=== PATIENT | female | born 1995 | race Caucasian/White ===

== ENCOUNTER 2022-07-18 23:21 | Emergency (ER) | payer BC ==
[~2022-07-18] VITALS: Ht 172.7 cm; Wt 70.0 kg
[2022-07-19] MEDS ORDERED: LIDOCAINE VISCOUS 2% 15ML UD PO ONE (00:30)
[2022-07-19] MEDS ORDERED: MAALOX PLUS or MAALOX 30 ML PO ONE (00:30)
[2022-07-19] MEDS ORDERED: METOCLOPRAMIDE 10 mg/10ml ORAL soln PO ONE (00:30)
[2022-07-19 00:35] LABS: Basophils # (auto) 0.1 10 ^3/uL (0-0.2); Basophils % (auto) 0.6 % (0.0-2.0); Eosinophils % (auto) 0.8 % (0.0-7.0); Hematocrit 39.4 % (36.0-46.0); Hemoglobin 13.3 g/dL (12.2-16.2); Lymphocytes # (auto) 2.4 10 ^3/uL (0.4-5.4); Lymphocytes % (auto) 24.2 % (10.0-50.0); Mean Corpuscular Hemoglobin 28.7 pg (28.0-32.0); Mean Corpuscular Hgb Conc. 33.8 g/dL (32.0-36.0); Mean Corpuscular Volume 84.8 fL (80.0-100.0); Monocytes # (auto) 0.4 10 ^3/uL (0-1.3); Monocytes % (auto) 4.4 % (0.0-12.0); Neutrophils # (auto) 6.9 10 ^3/uL (1.6-8.6); Red Blood Cells 4.65 10^6/uL (4.0-5.20); Red Cell Distribution Width 13.8 % (11.8-14.3); White Blood Cell 9.9 10^3/uL (4.4-10.8)
[2022-07-19 00:36] LABS: Eosinophils # (auto) 0 10 ^3/uL (0-0.8)
[2022-07-19 00:53] LABS: BUN/Creatinine Ratio 8.9; Calcium 9.2 mg/dL (8.5-10.1); Potassium 3.7 mmol/L (3.5-5.1)
[2022-07-19 00:56] LABS: Bilirubin, Total 0.6 mg/dL (0.2-1.0); Total Protein 7.9 g/dL (6.4-8.2)
[2022-07-19] MEDS ORDERED: FAMO-161 PO (05:15)
[2022-07-19] MEDS ORDERED: MET10LQ PO (05:15)
[2022-07-19 05:58] VITALS: BP 115/82
== END 2022-07-19 06:07 | disposition home or self-care (01) ==
LOC: ER 23:21 → EDBD 23:21 → ER 07-19 06:07
DX: K29.70 Gastritis, unspecified, without bleeding (principal); F32.9 Major depressive disorder, single episode, unspecified; R10.2 Pelvic and perineal pain
CPT/HCPCS: 36415; 74176; 80053; 83690; 84702; 85025; 99284; J8597

== ENCOUNTER → 2022-07-19 | Emergency (ER) | payer BC ==
[~2022-07-19] MED LIST: FAMO-161 PO; MET10LQ PO
== END | disposition left against medical advice (07) ==
LOC: ER 07:03
DX: R10.9 Unspecified abdominal pain (principal); Z53.21 Procedure and treatment not carried out due to patient leaving prior to being seen by health care provider

== ENCOUNTER 2023-05-10 20:35 | Emergency (ER) | payer BC ==
[~2023-05-10] VITALS: Ht 172.7 cm; Wt 68.2 kg
[2023-05-10] MEDS ORDERED: KETOROLAC TROMETH 60MG/2ML VIAL IM ONE (21:45)
[2023-05-10] MEDS ORDERED: diphenhdrAMINE HCL 50 MG/1 ML VL IM ONE (21:45)
[2023-05-10] MEDS ORDERED: ONDANSETRON HCL 4 MG/2 ML VIAL IM ONE (21:45)
[2023-05-10 22:23] VITALS: BP 112/75; PULSE 95; RESP 16; TEMP 99.7; O2SAT 97
== END 2023-05-10 22:31 | disposition left against medical advice (07) ==
LOC: ER 20:35
DX: R51.9 Headache, unspecified (principal); F32.9 Major depressive disorder, single episode, unspecified
CPT/HCPCS: 96372; 99284; J1200; J1885; J2405

== ENCOUNTER 2023-07-26 14:42 | Emergency (ER) | payer BC, MEDICAID ==
[~2023-07-26] VITALS: Ht 172.7 cm; Wt 69.4 kg
[2023-07-26] MEDS: HYDROcodone-ACET 10/325MG TAB PO ONE (15:24)
[2023-07-26 15:26] VITALS: BP 122/86; PULSE 85; RESP 18; O2SAT 96
[2023-07-26] MEDS ORDERED: IBU600T PO (16:17)
== END 2023-07-26 16:33 | disposition home or self-care (01) ==
LOC: ER 14:42
DX: S46.812A Strain of other muscles, fascia and tendons at shoulder and upper arm level, left arm, initial encounter (principal); F32.9 Major depressive disorder, single episode, unspecified; Z79.899 Other long term (current) drug therapy; W18.39XA Other fall on same level, initial encounter; Y93.23 Activity, snow (alpine) (downhill) skiing, snowboarding, sledding, tobogganing and snow tubing; Y92.89 Other specified places as the place of occurrence of the external cause; Y99.8 Other external cause status
CPT/HCPCS: 73030

== ENCOUNTER 2024-07-15 04:46 | Emergency (ER) | payer BC, MEDICAID ==
[~2024-07-15] VITALS: Ht 172.7 cm; Wt 59.0 kg
[~2024-07-15 04:46] MED LIST changes: +IBU600T PO
[2024-07-15] MEDS: ONDANSETRON HCL 4 MG/2 ML VIAL IV ONE ×2 (05:12→09:02)
[2024-07-15] MEDS: LORazepam 2MG/ML-1ML VIAL IV ONE (05:12)
[2024-07-15] MEDS: KETOROLAC TROMETH 30 MG/ML 1ML VIAL IV ONE (05:12)
[2024-07-15] MEDS: PANTOPRAZOLE 40 MG/10 ML VIAL INJ IV ONE ×2 (05:12→09:03)
[2024-07-15 05:48] LABS: Basophils # (auto) 0 10 ^3/uL (0-0.2); Basophils % (auto) 0.3 % (0.0-2.0); Eosinophils # (auto) 0 10 ^3/uL (0-0.8); Eosinophils % (auto) 0.1 % (0.0-7.0); Hematocrit 37.5 % (36.0-46.0); Lymphocytes # (auto) 1.3 10 ^3/uL (0.4-5.4); Lymphocytes % (auto) 16.5 % (10.0-50.0); Mean Corpuscular Hemoglobin 29.2 pg (28.0-32.0); Mean Corpuscular Hgb Conc. 34.6 g/dL (32.0-36.0); Mean Corpuscular Volume 84.2 fL (80.0-100.0); Monocytes # (auto) 0.2 10 ^3/uL (0-1.3); Monocytes % (auto) 3.1 % (0.0-12.0); Neutrophils # (auto) 6.4 10 ^3/uL (1.6-8.6); Platelet Count (auto) 259 10^3/uL (140-450); Red Blood Cells 4.45 10^6/uL (4.0-5.20)
[2024-07-15 06:17] LABS: Albumin 4.7 g/dL (3.2-4.8); Alkaline Phosphatase 51 U/L (46-116); Anion Gap 12 (5-15); BUN/Creatinine Ratio 20.6 (10.0-20.0); Blood Urea Nitrogen 14 mg/dL (9-23); Calcium 9.7 mg/dL (8.7-10.4); Carbon Dioxide 22 mmol/L (20-31); Chloride 105 mmol/L (98-107); Lipase 43 U/L (12-53); Sodium 139 mmol/L (136-145)
[2024-07-15 06:18] LABS: Bilirubin, Total 0.9 mg/dL (0.2-1.0); Total Protein 6.9 g/dL (5.7-8.2)
[2024-07-15 06:26] LABS: Alanine Aminotransferase < 9 U/L (7-40); Aspartate Aminotransferase 9 U/L (13-40); Glucose 111 mg/dL (74-106)
[2024-07-15 07:30] VITALS: PULSE 62; RESP 18; TEMP 98.4; O2SAT 98
--- NOTE | 2024-07-15 08:01 | ED.PDOC ---
GI ASSESSMENT HPI Comments 28 y/o F, DELMAR presents to the ED for CC of abdominal pain. Patient states, she has been experiencing epigastric RLQ abdominal pain x2day. Patient endorses on, currently withdrawing from ETOH and believes symptoms are related but is unsure. Patient comments, 03/18 pain with associated symptoms of nausea and vomiting. Patient denies fever, chills, sweats, auditory hallucinations or visual hallucinations. No other symptoms or modifying factors at this time. Chief Complaint: Abdominal Pain Time Seen by MD: 08:10 Primary Care Provider: ANGELIES Reviewed Notes: Nurses Notes, Yard Coupler Notes, Medications, Allergies Allergies: Coded Allergies: NO KNOWN ALLERGIES (Unverified , 07/18/22) Home Meds Active Scripts Ibuprofen Micronized (MOTRIN TABLET) 600 Mg Tb, 600 MG PO TID PRN for 5 Days, #15 TAB *Black box warning-NSAIDS can increase risk of [place] & hypertension, GI irritation, ulceration, bleed, perferation. Do not use post cardiac surgery. Use short duration/lowest effective dose. Prov:CITLALY CHAIREZ MD 07/26/23 Famotidine (Pepcid AC) 20 Mg Tab, 40 MG PO BID for 20 Days, #80 TAB Prov:FRANTZ KOCH DO 07/19/22 Metoclopramide Hcl (Reglan) 10 Mg/10 Ml So, 10 MG PO TIDPRN PRN for 10 Days, #120 ML Prov:FRANTZ KOCH DO 07/19/22 Information Source: Patient, Emergency Med Personnel Mode of Arrival: EMS Timing: Days Duration: Since onset Prehospital treatment: None Quality: None Vomitus: Watery Stool: Normal Severity: Mild Recent: None Recent Hx of: None Pain Location: RLQ Modifying Factors: Nothing Associated sign and symptoms: Nausea, Vomiting, Abdominal Pain Past Medical History PAST MEDICAL HISTORY: Depression, Seizures Surgical History: Denies all surgeries MAIL CLERK BILLS History: No Pertinent MAIL CLERK BILLS History Family History Family History: Unknown Social History Smoker: Non-Smoker Alcohol: Denies ETOH Use Drugs: Denies Drug Use Lives In: Home Constitutional: denies: chills, diaphoresis, fatigue, fever, malaise, sweats, weakness, others EENTM: denies: blurred vision, double vision, ear bleeding, ear discharge, ear drainage, ear pain, ear ringing, eye pain, eye redness, hearing loss, mouth pain, mouth swelling, nasal discharge, nose bleeding, nose congestion, nose pain, photophobia, tearing, throat pain, throat swelling, voice changes, others Respiratory: denies: cough, hemoptysis, orthopnea, SOB at rest, shortness of breath, SOB with excertion, stridor, wheezing, others Cardiovascular: denies: chest pain, dizzy spells, diaphoresis, Dyspnea on exertion, edema, irregular heart beat, left arm pain, lightheadedness, palpitations, PND, syncope, others Gastrointestinal: reports: abdominal pain, nausea, vomiting; denies: abdomen distended, blood streaked bowels, constipated, diarrhea, dysphagia, difficulty swallowing, hematemesis, melena, poor appetite, poor fluid intake, rectal bleeding, rectal pain, others Genitourinary: denies: abnormal vagina bleeding, burning, dyspareunia, dysuria, flank pain, frequency, hematuria, incontinence, pain, , vagina discharge, urgency, others Neurological: denies: dizziness, fainting, headache, left sided numbness, left sided weakness, numbness, paresthesia, pre-existing deficit, right sided numbness, right sided weakness, seizure, speech problems, tingling, tremors, weakness, others Musculoskeletal: denies: back pain, gout, joint pain, joint swelling, muscle pain, muscle stiffness, neck pain, others Integumetry: denies: bruises, change in color, change in hair/nails, dryness, laceration, lesions, lumps, rash, wounds, others Allergic/Immunocompromised: denies: Difficulty Healing, Frequent Infections, Hives, Itching, others Hematologic/Lymphatic: denies: anemia, blood clots, easy bleeding, easy bruising, swollen glands, others Endocrine: denies: excessive hunger, excessive sweating, excessive thirst, excessive urination, flushing, intolerance to cold, intolerance to heat, unexplained weight gain, unexplained weight loss, others Psychiatric: denies: anxiety, bipolar disorder, depression, hopeless, panic disorder, schizophrenia, sleepless, suicidal, others All Other Systems: Reviewed and Negative Physical Exam General Appearance: Moderate Distress HEENT: Normal ENT Inspection, Pharynx Normal, TMs Normal Neck: Full Range of Motion, Non-Tender, Normal, Normal Inspection Respiratory: Chest Non-Tender, Lungs Clear, No Accessory Muscle Use, No Respiratory Distress, Normal Breath Sounds Cardiovascular: No Edema, No JVD, No Murmur, No Gallop, Normal Peripheral Pulses, Regular Rate/Rhythm Breast Exam: Deferred Gastrointestinal: No Organomegaly, Non Tender, No Pulsatile Mass, Normal Bowel Sounds, Soft Genitalia: Deferred Pelvic: Deferred Rectal: Deferred Extremities: No calf tenderness, Normal capillary refill, Normal inspection, Normal range of motion, Non-tender, No pedal edema Musculoskeletal : Apperance: Normal Neurologic: Alert, amusement park entertainer II-XII nml as Tested, No Motor Deficits, Normal Affect, Normal Mood, No Sensory Deficits Cerebellar Function: NOT DONE Reflexes: NOT DONE Skin: Dry, Normal Color, Warm Peripheral Pulses: 3+ Radial (R), 3+ Radial (L) Lymphatic: No Adenopathy Was a procedure done? Was a procedure done?: No GI differential Dx Differential Diagnosis: Constipation, Diverticular disease, Esophagitis, Gastritis/PUD, Gastroenteritis, Drug toxicity, Electrolyte Imbalance, Food Poisoning, Bacterial, Viral X-Ray, Labs, Meds, VS Vital Signs Date Time Temp Pulse Resp B/P (MAP) Pulse Ox O2 Delivery O2 Flow Rate FiO2 07/15/24 09:03 68 16 143/99 07/15/24 07:30 98.4 62 18 143/99 (114) 99 98.4 07/15/24 07:30 62 18 98 Room Air* 0 21 07/15/24 05:12 98.0 97 20 145/83 (103) 99 Lab Test 07/15/24 08:15 07/15/24 05:28 Range/Units Urine Color Yellow Yellow Urine Clarity Cloudy H Clear Urine pH 6.0 5.0-9.0 Urine Specific [place] 1.039 H 1.001-1.035 Urine Protein 1+ H Negative Urine Ketones 2+ H Negative Urine Blood 1+ H Negative /uL Urine Nitrite Negative Negative Urine Bilirubin Negative Negative Urine Urobilinogen Normal Negative mg/dL Urine Leukocyte Esterase 2+ Negative /uL Urine RBC 5 0 - 4 /hpf Urine Microscopic WBC 5 0-5 /HPF Urine Squamous Epithelial Cells Mod <5 /hpf Urine Amorphous Crystals Few None Seen /hpf Urine Bacteria Few H None Seen /hpf Urine Mucus Few None Seen Urine Glucose Normal Normal mg/dL Urine Test Negative Negative White Blood Count 8.0 4.4-10.8 10^3/uL Red Blood Count 4.45 4.0-5.20 10^6/uL Hemoglobin 13.0 12.2-16.2 g/dL Hematocrit 37.5 36.0-46.0 % Mean Corpuscular Volume 84.2 80.0-100.0 fL Mean Corpuscular Hemoglobin 29.2 28.0-32.0 pg Mean Corpuscular Hemoglobin Concent 34.6 32.0-36.0 g/dL Red Cell Distribution Width 13.0 11.8-14.3 % Platelet Count 259 140-450 10^3/uL Mean Platelet Volume 8.3 6.9-10.8 fL Neutrophils (%) (Auto) 80.0 37.0-80.0 % Lymphocytes (%) (Auto) 16.5 10.0-50.0 % Monocytes (%) (Auto) 3.1 0.0-12.0 % Eosinophils (%) (Auto) 0.1 0.0-7.0 % Basophils (%) (Auto) 0.3 0.0-2.0 % Neutrophils # (Auto) 6.4 1.6-8.6 10 ^3/uL Lymphocytes # (Auto) 1.3 0.4-5.4 10 ^3/uL Monocytes # (Auto) 0.2 0-1.3 10 ^3/uL Eosinophils # (Auto) 0 0-0.8 10 ^3/uL Basophils # (Auto) 0 0-0.2 10 ^3/uL Nucleated Red Blood Cells 0.0 % Sodium Level 139 136-145 mmol/L Potassium Level 3.0 L 3.5-5.1 mmol/L Chloride Level 105 98-107 mmol/L Carbon Dioxide Level 22 20-31 mmol/L Anion Gap 12 5-15 Blood Urea Nitrogen 14 9-23 mg/dL Creatinine 0.68 0.550-1.02 mg/dL Glomerular Filtration Rate Calc 122 >90 mL/min BUN/Creatinine Ratio 20.6 H 10.0-20.0 Serum Glucose 111 H 74-106 mg/dL Lactic Acid Level 1.7 0.4-2.0 mmol/L Calcium Level 9.7 8.7-10.4 mg/dL Total Bilirubin 0.9 0.2-1.0 mg/dL Aspartate Amino Transferase (AST) 9 L 13-40 U/L Alanine Aminotransferase (ALT) < 9 7-40 U/L Alkaline Phosphatase 51 46-116 U/L Total Protein 6.9 5.7-8.2 g/dL Albumin 4.7 3.2-4.8 g/dL Lipase 43 12-53 U/L Plasma/Serum Blood Alcohol Pending Current Medications Medications (Trade) Dose Ordered Sig/Guevara Route Start Time Stop Time Status Last Admin Ketorolac Tromethamine (Toradol Injection) 15 mg ONCE ONCE IV 07/15/24 05:00 07/15/24 05:01 DC 07/15/24 05:12 Ondansetron HCl (Zofran) 4 mg ONCE ONCE IV 07/15/24 05:00 07/15/24 05:01 DC 07/15/24 05:12 Pantoprazole Sodium (Protonix) 40 mg ONCE ONCE IV 07/15/24 05:00 07/15/24 05:01 DC 07/15/24 05:12 Lorazepam (Ativan Inj) 1 mg ONCE ONCE IV 07/15/24 05:15 07/15/24 05:16 DC 07/15/24 05:12 Ondansetron HCl (Zofran) 4 mg ONCE ONCE IV 07/15/24 09:00 07/15/24 09:01 DC 07/15/24 09:02 Morphine Sulfate 4 mg ONCE ONCE IV 07/15/24 09:00 07/15/24 09:01 DC 07/15/24 09:03 Pantoprazole Sodium (Protonix) 40 mg ONCE ONCE IV 07/15/24 09:00 07/15/24 09:01 DC 07/15/24 09:03 Sodium Chloride 1,000 ml @ 1,000 mls/hr Q1H ONCE IV 07/15/24 09:00 07/15/24 09:59 07/15/24 09:03 Thiamine HCl 100 mg ONCE ONCE IV 07/15/24 09:00 07/15/24 09:01 DC 07/15/24 09:03 Potassium Bicarbonate (Klor-Con/Ef) 25 meq ONCE ONCE PO 07/15/24 09:00 07/15/24 09:01 DC 07/15/24 09:04 Ceftriaxone Sodium 50 ml @ 100 mls/hr ONCE ONCE IV 07/15/24 09:00 07/15/24 09:29 07/15/24 09:13 Patient alert. Complaining of abdominal pain. History of alcohol use. Vitals stable. Answering questions. Establish intravenous access. Was given fluids. Was given thiamine. Was given morphine. Was given Zofran. Urinalysis shows UTI. Was given Rocephin. Sepsis due to urine. Potassium is low. Was given potassium. She continues to have abdominal pain. Counseled patient on effects of drinking for 15 minutes. Explained to the patient. Continue cardiac monitoring. Time of 1ST Reevaluation: 08:40 Reevaluation 1ST: Unchanged Patient Education/Counseling: Diagnosis, Treatment Family Education/Counseling: No Family Present Departure 1 Departure Time of Disposition: 09:16 Impression: Primary Impression: Sepsis, unspecified organism Qualified Codes: A41.9 - Sepsis, unspecified organism Additional Impressions: Urinary tract infection Qualified Codes: N30.00 - Acute cystitis without hematuria Hypokalemia Non-specific colitis Dehydration Disposition: ADMITTED INPATIENT Admit to: Med Surg Condition: Guarded Critical Care Note Critical Care Time?: No Stability Stability form required: No Heart Score Heart Score: Heart Score Response (Comments) Value History N/A 0 EKG N/A 0 Age N/A 0 Risk Factors N/A 0 Troponin N/A 0 Total 0 I personally scribed for CITLALY CHAIREZ MD ([email or web address]) on 07/15/24 at 08:01. Electronically submitted by Mary Antonio ([email or web address]). I personally scribed for CITLALY CHAIREZ MD ([email or web address]) on 07/15/24 at 08:51. Electronically submitted by Mary Antonio [email or web address]). CITLALY CHAIREZ MD Jul 15, 2024 08:01
[2024-07-15 08:35] LABS: Urine Amorphous Crystal FEW /hpf (None Seen); Urine Bacteria FEW /hpf (None Seen); Urine Blood 1+ /uL (Negative); Urine Color Yellow (Yellow); Urine Mucus FEW (None Seen); Urine Protein, UAD 1+ (Negative); Urine Specific Gravity 1.039 (1.001-1.035); Urine Squamous Epithelial Cell MOD /hpf (<5); Urine Urobilinogen Normal (Negative); Urine WBC 5 /HPF (0-5)
[2024-07-15 08:50] LABS: Urine Clarity Cloudy (Clear)
[2024-07-15] MEDS: SODIUM CHLORIDE 0.9% 1,000 ML IV ONE (09:03)
[2024-07-15] MEDS: MORPHINE SULFATE 4 MG/ML SYR/VIAL IV ONE (09:03)
[2024-07-15] MEDS: THIAMINE 100mg/ml INJ (200mg/2ml VIAL) IV ONE (09:03)
[2024-07-15] MEDS: POTASSIUM EFFERVESENT TAB 25 MEQ PO ONE (09:04)
[2024-07-15] MEDS: cefTRIAXone 1GM/50ML D5W 50 ML IV ONE (09:13)
[2024-07-15 12:01] VITALS: BP 110/53; PULSE 64; RESP 16; O2SAT 98
== END 2024-07-15 13:16 | disposition left against medical advice (07) ==
LOC: EDUNIT# 04:46 → EDBD 04:46 → ER 04:46
DX: A41.9 Sepsis, unspecified organism (principal); N39.0 Urinary tract infection, site not specified; E87.6 Hypokalemia; K52.9 Noninfective gastroenteritis and colitis, unspecified; E86.0 Dehydration; F32.9 Major depressive disorder, single episode, unspecified; R11.2 Nausea with vomiting, unspecified
CPT/HCPCS: 36415; 80053; 80320; 81001; 81025; 83605; 83690; 85025; 96365; 96375; 96376; 99285; J0696; J1885; J2060; J2270; J2405; J2470; J3411; 96374

== ENCOUNTER 2024-07-29 08:01 | Inpatient (IN) | payer MEDICAID ==
[~2024-07-29] VITALS: Ht 172.7 cm; Wt 70.0 kg
[2024-07-29] MEDS: SODIUM CHLORIDE 0.9% 1,000 ML IVB ONE (08:17)
--- NOTE | 2024-07-29 08:23 | ED.PDOC ---
GI ASSESSMENT HPI Comments 28 y/o FDELMAR presents to the ED for CC of abdominal pain. Per EMS, patient has been experiencing diffuse abdominal pain with associated symptoms of nausea and vomiting since last night (07/28/24). Patient states, that she believes abdominal pain and nausea to be caused by something she ate last night (). Patient was given 4mg of Zofran in route to ED with no affect. Patient denies fever, chills, body-aches, diarrhea, or headache. No other associated symptom's, modifiers, recent injuries or sick contact at this time. Chief Complaint: Abdominal Pain Time Seen by MD: 08:10 Primary Care Provider: ISAURA Reviewed Notes: Nurses Notes, Medications, Allergies Allergies: Coded Allergies: NO KNOWN ALLERGIES (Unverified , 07/18/22) Home Meds Active Scripts Ibuprofen Micronized (MOTRIN TABLET) 600 Mg Tb, 600 MG PO TID PRN for 5 Days, #15 TAB *Black box warning-NSAIDS can increase risk of [place] & hypertension, GI irritation, ulceration, bleed, perferation. Do not use post cardiac surgery. Use short duration/lowest effective dose. Prov:CITLALY CHAIREZ MD 07/26/23 Famotidine (Pepcid AC) 20 Mg Tab, 40 MG PO BID for 20 Days, #80 TAB Prov:FRANTZ KOCH DO 07/19/22 Metoclopramide Hcl (Reglan) 10 Mg/10 Ml So, 10 MG PO TIDPRN PRN for 10 Days, #120 ML Prov:FRANTZ KOCH DO 07/19/22 Information Source: Patient, Emergency Med Personnel Mode of Arrival: EMS Timing: Hours Duration: Since onset Prehospital treatment: None Quality: None Vomitus: Watery Stool: Normal Severity: Moderate Recent: None Recent Hx of: None Pain Location: Diffuse Modifying Factors: Nothing Associated sign and symptoms: Nausea, Vomiting Past Medical History PAST MEDICAL HISTORY: Depression, Seizures Surgical History: Denies all surgeries CIA AGENT History: No Pertinent CIA AGENT History Family History Family History: Unknown Social History Smoker: Non-Smoker Alcohol: Denies ETOH Use Drugs: Denies Drug Use Lives In: Home Constitutional: denies: chills, diaphoresis, fatigue, fever, malaise, sweats, weakness, others EENTM: denies: blurred vision, double vision, ear bleeding, ear discharge, ear drainage, ear pain, ear ringing, eye pain, eye redness, hearing loss, mouth pain, mouth swelling, nasal discharge, nose bleeding, nose congestion, nose pain, photophobia, tearing, throat pain, throat swelling, voice changes, others Respiratory: denies: cough, hemoptysis, orthopnea, SOB at rest, shortness of breath, SOB with excertion, stridor, wheezing, others Cardiovascular: denies: chest pain, dizzy spells, diaphoresis, Dyspnea on exertion, edema, irregular heart beat, left arm pain, lightheadedness, palpitations, PND, syncope, others Gastrointestinal: reports: abdominal pain, nausea, vomiting; denies: abdomen distended, blood streaked bowels, constipated, diarrhea, dysphagia, difficulty swallowing, hematemesis, melena, poor appetite, poor fluid intake, rectal bleeding, rectal pain, others Genitourinary: denies: abnormal vagina bleeding, burning, dyspareunia, dysuria, flank pain, frequency, hematuria, incontinence, pain, , vagina discharge, urgency, others Neurological: denies: dizziness, fainting, headache, left sided numbness, left sided weakness, numbness, paresthesia, pre-existing deficit, right sided numbness, right sided weakness, seizure, speech problems, tingling, tremors, weakness, others Musculoskeletal: denies: back pain, gout, joint pain, joint swelling, muscle pain, muscle stiffness, neck pain, others Integumetry: denies: bruises, change in color, change in hair/nails, dryness, laceration, lesions, lumps, rash, wounds, others Allergic/Immunocompromised: denies: Difficulty Healing, Frequent Infections, Hives, Itching, others Hematologic/Lymphatic: denies: anemia, blood clots, easy bleeding, easy bruising, swollen glands, others Endocrine: denies: excessive hunger, excessive sweating, excessive thirst, excessive urination, flushing, intolerance to cold, intolerance to heat, unexp lained weight gain, unexplained weight loss, others Psychiatric: denies: anxiety, bipolar disorder, depression, hopeless, panic disorder, schizophrenia, sleepless, suicidal, others All Other Systems: Reviewed and Negative Physical Exam General Appearance: Moderate Distress HEENT: Normal ENT Inspection, Pharynx Normal, TMs Normal Neck: Full Range of Motion, Non-Tender, Normal, Normal Inspection Respiratory: Chest Non-Tender, Lungs Clear, No Accessory Muscle Use, No Respiratory Distress, Normal Breath Sounds Cardiovascular: No Edema, No JVD, No Murmur, No Gallop, Normal Peripheral Pulses, Regular Rate/Rhythm Breast Exam: Deferred Gastrointestinal: No Organomegaly, Non Tender, No Pulsatile Mass, Normal Bowel Sounds, Soft Genitalia: Deferred Pelvic: Deferred Rectal: Deferred Extremities: No calf tenderness, Normal capillary refill, Normal inspection, Normal range of motion, Non-tender, No pedal edema Musculoskeletal : Apperance: Normal Neurologic: Alert, lorry weigher II-XII nml as Tested, No Motor Deficits, Normal Affect, Normal Mood, No Sensory Deficits Cerebellar Function: Normal Reflexes: Normal Skin: Dry, Normal Color, Warm Peripheral Pulses: 3+ Radial (R), 3+ Radial (L) Lymphatic: No Adenopathy Was a procedure done? Was a procedure done?: No GI differential Dx Differential Diagnosis: Constipation, Diverticular disease, Esophagitis, Gastritis/PUD, Gastroenteritis, Electrolyte Imbalance, Food Poisoning, Bacterial, Viral X-Ray, Labs, Meds, VS Vital Signs Date Time Temp Pulse Resp B/P (MAP) Pulse Ox O2 Delivery O2 Flow Rate FiO2 07/29/24 08:32 88 17 123/91 07/29/24 08:21 88 17 100 Room Air 07/29/24 08:21 88 17 123/91 (102) 100 07/29/24 08:18 98.2 69 18 145/98 (114) 96 Lab Test 07/29/24 08:14 Range/Units Urine Color Pending Urine Clarity Pending Urine pH Pending Urine Specific [place] Pending Urine Protein Pending Urine Ketones Pending Urine Blood Pending Urine Nitrite Pending Urine Bilirubin Pending Urine Urobilinogen Pending Urine Leukocyte Esterase Pending Urine RBC Pending Urine Microscopic WBC Pending Urine Squamous Epithelial Cells Pending Urine Bacteria Pending Urine Glucose Pending Urine Opiates Screen Pending Urine Fentanyl Screen Pending Urine Barbiturates Screen Pending Urine Phencyclidine Screen Pending Urine Amphetamines Screen Pending Urine Benzodiazepines Screen Pending Urine Cocaine Screen Pending Urine Cannabinoids Screen Pending Current Medications Medications (Trade) Dose Ordered Sig/Guevara Route Start Time Stop Time Status Last Admin Ondansetron HCl (Zofran) 4 mg ONCE ONCE IV 07/29/24 08:15 07/29/24 08:16 DC 07/29/24 08:31 Sodium Chloride 1,000 ml @ 1,000 mls/hr Q1H ONCE IVB 07/29/24 08:15 07/29/24 09:14 07/29/24 08:17 Morphine Sulfate 4 mg ONCE ONCE IV 07/29/24 08:15 07/29/24 08:16 DC 07/29/24 08:32 Patient alert. Complaining of abdominal pain. History of alcohol abuse. Vitals stable. She is in rehab. Denies use of alcohol. Establish intravenous access Was given fluids. Was given morphine. Was given Zofran. Reviewed her previous visit. Explained to the patient. Continue cardiac monitoring. Time of 1ST Reevaluation: 08:40 Reevaluation 1ST: Unchanged Patient Education/Counseling: Diagnosis, Treatment Family Education/Counseling: No Family Present Additional Information I reviewed the following notes from patient's past medical history: 07/15/24 DX: ABDOMINAL PAIN The following tests were ordered, and results were reviewed by me: CBC, UA, BMP, DRUG PANEL Additional Information was gathered from interviewing the following independent historians: EMS I discussed treatment and results with medical personnel and: PATIENT Departure 1 Departure Time of Disposition: 08:25 Impression: Primary Impression: Acute abdominal pain Disposition: ADMITTED INPATIENT Admit to: Med Surg Condition: Guarded Critical Care Note Critical Care Time?: No Stability Stability form required: No Heart Score Heart Score: Heart Score Response (Comments) Value History N/A 0 EKG N/A 0 Age N/A 0 Risk Factors N/A 0 Troponin N/A 0 Total 0 I personally scribed for CITLALY CHAIREZ MD ([email or web address]) on 07/29/24 at 08:23. Electronically submitted by Mary Antonio ([email or web address]). I personally scribed for CITLALY CHAIREZ MD ([email or web address]) on 07/29/24 at 08:36. Electronically submitted by Mary Antonio ([email or web address]). I personally scribed for CITLALY CHAIREZ MD ([email or web address]) on 07/29/24 at 08:38. Electronically submitted by Mary Antonio ([email or web address]). CITLALY CHAIREZ MD Jul 29, 2024 08:23
[2024-07-29 08:30] VITALS: PULSE 65; RESP 16; O2SAT 98
[2024-07-29] MEDS: ONDANSETRON HCL 4 MG/2 ML VIAL IV ONE (08:31)
[2024-07-29] MEDS: MORPHINE SULFATE 4 MG/ML SYR/VIAL IV ONE (08:32)
[2024-07-29 08:50] LABS: Urine Bacteria FEW /hpf (None Seen); Urine Blood Negative /uL (Negative); Urine Clarity Clear (Clear); Urine Color Yellow (Yellow); Urine Mucus FEW (None Seen); Urine Protein, UAD 1+ (Negative); Urine Specific Gravity 1.034 (1.001-1.035); Urine Squamous Epithelial Cell FEW /hpf (<5); Urine Urobilinogen Normal (Negative); Urine WBC 3 /HPF (0-5)
[2024-07-29 08:58] LABS: Barbiturate Scree,Urine Pos (NEGATIVE); Cannabinoid Screen, Urine Pos (NEGATIVE)
[2024-07-29 08:59] LABS: Amphetamine Screen, Urine Neg (NEGATIVE); Benzodiazephine Screen, Urine Neg (NEGATIVE); Cocaine Screen, Urine Neg (NEGATIVE); Opiate Scree,Urine Neg (NEGATIVE); Phencyclidine Screen, Urine Neg (NEGATIVE)
[2024-07-29 10:20] LABS: Basophils # (auto) 0 10 ^3/uL (0-0.2); Basophils % (auto) 0.2 % (0.0-2.0); Eosinophils # (auto) 0 10 ^3/uL (0-0.8); Hematocrit 38.7 % (36.0-46.0); Hemoglobin 13.1 g/dL (12.2-16.2); Lymphocytes # (auto) 0.9 10 ^3/uL (0.4-5.4); Lymphocytes % (auto) 7.4 % (10.0-50.0); Mean Corpuscular Hemoglobin 29.1 pg (28.0-32.0); Mean Corpuscular Hgb Conc. 33.9 g/dL (32.0-36.0); Mean Corpuscular Volume 85.8 fL (80.0-100.0); Monocytes # (auto) 0.3 10 ^3/uL (0-1.3); Monocytes % (auto) 2.6 % (0.0-12.0); Neutrophils # (auto) 11.4 10 ^3/uL (1.6-8.6); Neutrophils % (auto) 89.8 % (37.0-80.0); Platelet Count (auto) 327 10^3/uL (140-450); Red Blood Cells 4.51 10^6/uL (4.0-5.20); Red Cell Distribution Width 13.6 % (11.8-14.3); White Blood Cell 12.7 10^3/uL (4.4-10.8)
[2024-07-29 10:25] LABS: Potassium 3.8 mmol/L (3.5-5.1); Sodium 142 mmol/L (136-145)
[2024-07-29 10:26] LABS: Anion Gap 10 (5-15); Carbon Dioxide 25 mmol/L (20-31)
[2024-07-29 10:31] LABS: BUN/Creatinine Ratio 14.9 (10.0-20.0); Blood Urea Nitrogen 11 mg/dL (9-23)
[2024-07-29 10:37] LABS: Chloride 107 mmol/L (98-107); Glucose 133 mg/dL (74-106)
[2024-07-29] MEDS ORDERED: PIPERACILLIN-TAZOB 3.375GM 100 ML IV SCH (14:00)
[2024-07-29] MEDS ORDERED: ACETAMINOPHEN 325 MG TAB PO PRN (14:00)
[2024-07-29] MEDS ORDERED: VANCOMYCIN PER PHARMACY 0 MG IV SCH (14:00)
[2024-07-29] MEDS ORDERED: ONDANSETRON HCL 4 MG/2 ML VIAL IV PRN (14:00)
[2024-07-29] MEDS ORDERED: LEVE100020 (14:07)
[2024-07-29] MEDS ORDERED: ACAM1TAB (14:07)
[2024-07-29] MEDS ORDERED: PREG100C66 (14:07)
--- NOTE | 2024-07-29 14:22 | DVHHP2 ---
History of Present Illness Reason for Visit: Abdominal pain History of Present Illness Astrid Cobian is a 28-year-old female with past medical history of depression, seizure, and anxiety who presents to the ED for abdominal pain, nausea, and vomiting x1 day. Patient states that she has been vomiting food contents and bile. Patient reports her pain 7/10 intermittent and aching points to her right upper flank. Patient denies any chest pain, recent trauma or recent injury, shortness of breath, fever, chills, wheezing, diarrhea, lightheadedness, and dizziness. Patient also denies that she had any recent ingestion of spoiled food. She states that hot showers makes the pain better and sitting makes it worse. Patient states that she vapes, drinks occasionally, and uses marijuana. Patient also reports that she currently stays at a detox center and she is from [place]. HIGH PRESSURE FIRER: Seizure Psych: Anxiety, Depression Family History: Hypertension, Other (Mom with hypertension and heart disease) Smoke: <1 pack per day (Vape) ALCOHOL: occassional Drugs: Marijuana, Other (Barbiturates) Lives: Other Domestic Violence: Neg Review of Systems Constitutional: No: Fever, Chills, Sweats, Weakness, Malaise, Other Eyes: No: Pain, Vision change, Conjunctivae inflammation, Eyelid inflammation, Other, Redness ENT: No: Ear pain, Ear discharge, Nose pain, Nose discharge, Nose congestion, Mouth pain, Mouth swelling, Throat pain, Throat swelling, Other Respiratory: No: Cough, Dry, Shortness of breath, SOB with excertion, Wheezing, Hemoptysis, Pleuritic Pain, Sputum, Wheezing, Other Cardiovascular: No: Chest Pain, Palpitations, Orthopnea, Paroxysmal Noc. Dyspnea, Edema, Lt Headedness, Other Gastrointestinal: Nausea, Vomiting, Abdominal Pain; No: Diarrhea, Constipation, Melena, Hematochezia, Other Genitourinary: No Dysuria, No Frequency, No Incontinence, No Hematuria, No Retention, No Other Musculoskeletal: No: other, neck pain, shoulder pain, arm pain, back pain, hand pain, leg pain, foot pain Skin: No: Rash, Lesions, Jaundice, Bruising, Other Neurological: No: Weakness, Numbness, Incoordination, Change in speech, Confusion, Seizures, Other Allergies: Coded Allergies: NO KNOWN ALLERGIES (Unverified , 07/18/22) Medications Current Medications Medications Dose Ordered Sig/Guevara Route Start Time Stop Time Status Last Admin Dose Admin Famotidine 40 mg BID PO 07/29/24 22:00 Vancomycin HCl 0 ml @ 0 mls/hr UD IV 07/29/24 14:00 UNV Piperacillin Sod/ Tazobactam Sod 100 ml @ 25 mls/hr Q8HR IV 07/29/24 14:00 UNV Acetaminophen/ Hydrocodone Bitart 1 tab Q4HP PRN PO 07/29/24 14:00 UNV Ondansetron HCl 4 mg Q4HP PRN IV 07/29/24 14:00 UNV Acetaminophen 650 mg Q6HP PRN PO 07/29/24 14:00 UNV Exam Vital Signs Vital Signs Date Time Temp Pulse Resp B/P (MAP) Pulse Ox O2 Delivery O2 Flow Rate FiO2 07/29/24 12:42 93 16 117/78 (91) 95 07/29/24 08:30 Room Air* 0 21 07/29/24 08:18 98.2 General Appearance: Alert, Oriented X3, Cooperative, No acute distress HEENT: Atraumatic, PERRLA, EOMI, Mucous membr. moist/pink Respiratory: Clear to auscultation, Normal air movement Cardiovascular: Regular rate, Normal S1, Normal S2, No murmurs Abdominal: Normal bowel sounds, Soft, No hepatospenomegaly, No masses Extremities: No clubbing, No cyanosis, No edema, Normal pulses, No tenderness/swelling Skin: No rashes, No breakdown, No significant lesion Neuro: Normal gait, Normal speech, Strength at 5/5 X4 ext, Normal tone, Sensa tion intact Psych/Mental Status: Mental status NL, Mood NL Labs/Xrays Labs Test 07/29/24 09:43 07/29/24 08:14 Range/Units White Blood Count 12.7 H 4.4-10.8 10^3/uL Red Blood Count 4.51 4.0-5.20 10^6/uL Hemoglobin 13.1 12.2-16.2 g/dL Hematocrit 38.7 36.0-46.0 % Mean Corpuscular Volume 85.8 80.0-100.0 fL Mean Corpuscular Hemoglobin 29.1 28.0-32.0 pg Mean Corpuscular Hemoglobin Concent 33.9 32.0-36.0 g/dL Red Cell Distribution Width 13.6 11.8-14.3 % Platelet Count 327 140-450 10^3/uL Mean Platelet Volume 8.4 6.9-10.8 fL Neutrophils (%) (Auto) 89.8 H 37.0-80.0 % Lymphocytes (%) (Auto) 7.4 L 10.0-50.0 % Monocytes (%) (Auto) 2.6 0.0-12.0 % Eosinophils (%) (Auto) 0.0 0.0-7.0 % Basophils (%) (Auto) 0.2 0.0-2.0 % Neutrophils # (Auto) 11.4 H 1.6-8.6 10 ^3/uL Lymphocytes # (Auto) 0.9 0.4-5.4 10 ^3/uL Monocytes # (Auto) 0.3 0-1.3 10 ^3/uL Eosinophils # (Auto) 0 0-0.8 10 ^3/uL Basophils # (Auto) 0 0-0.2 10 ^3/uL Nucleated Red Blood Cells 0.0 % Sodium Level 142 136-145 mmol/L Potassium Level 3.8 3.5-5.1 mmol/L Chloride Level 107 98-107 mmol/L Carbon Dioxide Level 25 20-31 mmol/L Anion Gap 10 5-15 Blood Urea Nitrogen 11 9-23 mg/dL Creatinine 0.74 0.550-1.02 mg/dL Glomerular Filtration Rate Calc 113 >90 mL/min BUN/Creatinine Ratio 14.9 10.0-20.0 Serum Glucose 133 H 74-106 mg/dL Calcium Level 10.0 8.7-10.4 mg/dL Beta HCG, Quantitative 0.5 L 1.5-4.2 mIU/mL Plasma/Serum Blood Alcohol < 3.0 <10 mg/dL Urine Color Yellow Yellow Urine Clarity Clear Clear Urine pH 8.0 5.0-9.0 Urine Specific [place] 1.034 1.001-1.035 Urine Protein 1+ H Negative Urine Ketones Trace Negative Urine Blood Negative Negative /uL Urine Nitrite Negative Negative Urine Bilirubin Negative Negative Urine Urobilinogen Normal Negative mg/dL Urine Leukocyte Esterase Negative Negative /uL Urine RBC 5 0 - 4 /hpf Urine Microscopic WBC 3 0-5 /HPF Urine Squamous Epithelial Cells Few <5 /hpf Urine Bacteria Few H None Seen /hpf Urine Mucus Few None Seen Urine Glucose Normal Normal mg/dL Urine Opiates Screen Neg NEGATIVE Urine Fentanyl Screen Neg NEGATIVE Urine Barbiturates Screen Pos NEGATIVE Urine Phencyclidine Screen Neg NEGATIVE Urine Amphetamines Screen Neg NEGATIVE Urine Benzodiazepines Screen Neg NEGATIVE Urine Cocaine Screen Neg NEGATIVE Urine Cannabinoids Screen Pos NEGATIVE Exam: CT CT AB PEL WO CON-NO ORAL OR IV History: abd pain Comparison Study: CT ABD PELVIS WO CONTRAST on DOS: 07/19/22 Technique: Multidetector spiral CT of the abdomen and pelvis was performed from lung bases to pubic symphysis. Imaging was performed without IV contrast. Axial, coronal and sagittal multiplanar reformats were obtained from the axial data set by the technologist. Radiation dose : Abdomen/Pelvis: CTDIvol 10.49 mGy, DLP 538.78 mGy*cm. Findings: Evaluation of solid organs is limited due to lack of intravenous contrast use. Lung Bases: No acute or significant lung base finding. Normal heart size. No pleural or pericardial effusion. Liver: The liver is normal in size. No focal lesions. Gallbladder and biliary Tree: Unremarkable Spleen: Unremarkable Pancreas: The pancreas is grossly normal in appearance. Adrenal Glands: Unremarkable Kidneys: Kidneys are grossly normal without calculi or hydronephrosis. Bladder: Grossly unremarkable for degree of distention. Bowel: The stomach is grossly normal in appearance. Small bowel and colon are normal in caliber and distribution. Normal appendix is visualized in the right lower quadrant without findings of appendicitis. Ascites: Absent Lymphadenopathy: No mesenteric, retroperitoneal or periportal lymphadenopathy. Abdominal wall and Mesentery: Unremarkable. Vasculature: The visualized abdominal aorta is normal in size and caliber. Evaluation of abdominal and pelvic vessels is limited due to lack of intravenous contrast. Pelvic Organs: Unremarkable Musculoskeletal: No aggressive focal bony lesions, acute fractures or dislocation. IMPRESSION: 1. No acute abdominal or pelvic findings. No hydronephrosis or nephrolithiasis. CHEST RADIOGRAPH Indication: pain Technique: Single frontal view of the chest was obtained Comparison: None FINDINGS: Lines and Tubes: None Lungs: No focal consolidation. Pleura: No effusion. No pneumothorax. Cardiomediastinal contours: Unremarkable Bones: No acute osseous abnormality. IMPRESSION: 1. No acute cardiopulmonary disease. 2. Foreign bodies in the nipples. Assessment/Plan Assessment/Plan Assessment/Plan: Intractable abdominal pain with nausea and vomiting Leukocytosis Proteinuria Labs UA Pain management NS 1 L given ED Antiemetics UDS HCG CT abdomen and pelvis Chest x-ray IV antibiotics-vancomycin +Zosyn History of depression Continue home medications History of seizures with no recent seizures reported Continue home medications History of anxiety Continue home medications FEN/PPX Diet Hep-Lock DVT prophylaxis not indicated patient ambulating PUD prophylaxis not indicated no history of GERD or GI bleed Admit to med surg Home medications reconciled Discussed plan of care with patient and nurse Plan discussed with: Patient My Orders Orders - DEANDRE TY Procedure Category Date Status Time Ct Ab Pel Wo Con-No CT 07/29/24 Taken Oral Or Iv 12:11 Famotidine Tablet PHA 07/29/24 In Process (Pepcid Tablet) 22:00 Vancomycin Per PHA 07/29/24 Logged Pharmacy 14:00 Piperacillin-Tazob PHA 07/29/24 Logged 3.375gm (Zosyn 3.375g 14:00 Admit ADMIT 07/29/24 Transmitted 14:00 Allergies BIBI 07/29/24 In Process 14:00 Code Status CODE 07/29/24 Transmitted 14:00 Hydrocodone-Acet PHA 07/29/24 Logged 5/325mg Tab ([facility] 14:00 Ondansetron Hcl PHA 07/29/24 Logged (Zofran) 14:00 Complete Blood Count LAB 07/30/24 Verified 04:00 Comprehensive LAB 07/30/24 Verified Metabolic Panel 04:00 Acetaminophen Tablet PHA 07/29/24 Logged (Tylenol Tablet) 14:00 Date of Service: Jul 29, 2024 Billing Provider: DEANDRE TY Common Visit Codes: [id number] INP/OBS CARE (HIGH) DEANDRE TY Jul 29, 2024 14:22
--- NOTE | 2024-07-29 14:24 | DVH ---
Exam: CT CT AB PEL WO CON-NO ORAL OR IV History: abd pain Comparison Study: CT ABD PELVIS WO CONTRAST on DOS: 07/19/22 Technique: Multidetector spiral CT of the abdomen and pelvis was performed from lung bases to pubic symphysis. Imaging was performed without IV contrast. Axial, coronal and sagittal multiplanar reform ats were obtained from the axial data set by the technologist. Radiation dose : Abdomen/Pelvis: CTDIvol 10.49 mGy, DLP 538.78 mGy*cm. Findings: Evaluation of solid organs is limited due to lack of intravenous contrast use. Lung Bases: No acute or significant lung base finding. Normal heart size. No pleural or pericardial effusion. Liver: The liver is normal in size. No focal lesions. Gallbladder and biliary Tree: Unremarkable Spleen: Unremarkable Pancreas: The pancreas is grossly normal in appearance. Adrenal Glands: Unremarkable Kidneys: Kidneys are grossly normal without calculi or hydronephrosis. Bladder: Grossly unremarkable for degree of distention. Bowel: The stomach is grossly normal in appearance. Small bowel and colon are normal in caliber and d istribution. Normal appendix is visualized in the right lower quadrant without findings of appendicit is. Ascites: Absent Lymphadenopathy: No mesenteric, retroperitoneal or periportal lymphadenopathy. Abdominal wall and Mesentery: Unremarkable. Vasculature: The visualized abdominal aorta is normal in size and caliber. Evaluation of abdominal a nd pelvic vessels is limited due to lack of intravenous contrast. Pelvic Organs: Unremarkable Musculoskeletal: No aggressive focal bony lesions, acute fractures or dislocation. IMPRESSION: 1. No acute abdominal or pelvic findings. No hydronephrosis or nephrolithiasis. Radiation optimization: All CT scans at this facility use at least one of these dose optimization juli hniques: Automated exposure control mA and/or kV adjustment per patient size (includes targeted exams where dose is matched to clinical indication) or iterative reconstruction. HS:Y
[2024-07-29] MEDS ORDERED: VANCOMYCIN 1.5GM/300ML 300 ML IV ONE (15:30)
[2024-07-29] MEDS: PIPERACILLIN-TAZOB 3.375GM 100 ML IV ONE (15:35)
[2024-07-29 17:00] VITALS: BP 108/61; PULSE 70; RESP 15; TEMP 98.2; O2SAT 96
[2024-07-29] MEDS: VANCOMYCIN 1.25GM/250ML 250 ML IV ONE (18:00)
[2024-07-29] MEDS: HYDROcodone-ACET 5/325MG TAB PO PRN (18:04)
[2024-07-29 20:00] VITALS: O2SAT 95
[2024-07-29 21:00] VITALS: BP 104/67; PULSE 67; RESP 18; TEMP 98.3; O2SAT 96
[2024-07-29] MEDS: FAMOTIDINE 20 MG TAB PO SCH (22:19)
[2024-07-29] MEDS ORDERED: QUET200T30 PO (22:21)
[2024-07-29] MEDS: PIPERACILLIN-TAZOB 3.375GM 100 ML IV SCH (23:33)
[2024-07-30 01:00] VITALS: BP 124/78; PULSE 70; RESP 18; TEMP 98.5; O2SAT 97
[2024-07-30] MEDS: VANCOMYCIN 1GM/250mL NS or D5W KIT IV SCH (02:36)
[2024-07-30 05:00] VITALS: BP 125/71; PULSE 84; RESP 18; TEMP 97.4; O2SAT 98
[2024-07-30 07:00] LABS: Basophils # (auto) 0.1 10 ^3/uL (0-0.2); Basophils % (auto) 0.7 % (0.0-2.0); Eosinophils # (auto) 0.1 10 ^3/uL (0-0.8); Eosinophils % (auto) 1.5 % (0.0-7.0); Hemoglobin 11.8 g/dL (12.2-16.2); Lymphocytes # (auto) 2.3 10 ^3/uL (0.4-5.4); Lymphocytes % (auto) 29.8 % (10.0-50.0); Mean Corpuscular Hemoglobin 28.5 pg (28.0-32.0); Mean Corpuscular Hgb Conc. 32.8 g/dL (32.0-36.0); Mean Corpuscular Volume 86.8 fL (80.0-100.0); Monocytes # (auto) 0.4 10 ^3/uL (0-1.3); Monocytes % (auto) 5.4 % (0.0-12.0); Neutrophils # (auto) 4.9 10 ^3/uL (1.6-8.6); Neutrophils % (auto) 62.6 % (37.0-80.0); Platelet Count (auto) 257 10^3/uL (140-450); Red Blood Cells 4.14 10^6/uL (4.0-5.20); Red Cell Distribution Width 13.5 % (11.8-14.3); White Blood Cell 7.8 10^3/uL (4.4-10.8)
[2024-07-30 07:21] LABS: Albumin 4.2 g/dL (3.2-4.8); Anion Gap 11 (5-15); BUN/Creatinine Ratio 12.9 (10.0-20.0); Calcium 9.3 mg/dL (8.7-10.4); Carbon Dioxide 21 mmol/L (20-31); Glucose 103 mg/dL (74-106); Potassium 3.8 mmol/L (3.5-5.1); Sodium 142 mmol/L (136-145)
[2024-07-30 07:22] LABS: Total Protein 6.2 g/dL (5.7-8.2)
[2024-07-30 07:24] LABS: Alanine Aminotransferase < 9 U/L (7-40); Alkaline Phosphatase 44 U/L (46-116); Aspartate Aminotransferase < 8 U/L (13-40); Bilirubin, Total 1.7 mg/dL (0.2-1.0); Blood Urea Nitrogen 8 mg/dL (9-23); Chloride 110 mmol/L (98-107)
[2024-07-30 09:00] VITALS: BP 118/68; PULSE 59; RESP 16; TEMP 97.8; O2SAT 94
--- NOTE | 2024-07-30 11:24 | DVHDS2 ---
Discharge Summary Date of Admission Jul 29, 2024 at 14:00 Date of Discharge: Jul 30, 2024 Admitting Diagnosis Abdominal pain Labs/Diagnostic Data: Laboratory Results Test 07/30/24 05:56 07/29/24 09:43 07/29/24 08:14 White Blood Count 7.8 10^3/uL (4.4-10.8) Red Blood Count 4.14 10^6/uL (4.0-5.20) Hemoglobin 11.8 g/dL (12.2-16.2) Hematocrit 36.0 % (36.0-46.0) Mean Corpuscular Volume 86.8 fL (80.0-100.0) Mean Corpuscular Hemoglobin 28.5 pg (28.0-32.0) Mean Corpuscular Hemoglobin Concent 32.8 g/dL (32.0-36.0) Red Cell Distribution Width 13.5 % (11.8-14.3) Platelet Count 257 10^3/uL (140-450) Mean Platelet Volume 8.7 fL (6.9-10.8) Neutrophils (%) (Auto) 62.6 % (37.0-80.0) Lymphocytes (%) (Auto) 29.8 % (10.0-50.0) Monocytes (%) (Auto) 5.4 % (0.0-12.0) Eosinophils (%) (Auto) 1.5 % (0.0-7.0) Basophils (%) (Auto) 0.7 % (0.0-2.0) Neutrophils # (Auto) 4.9 10 ^3/uL (1.6-8.6) Lymphocytes # (Auto) 2.3 10 ^3/uL (0.4-5.4) Monocytes # (Auto) 0.4 10 ^3/uL (0-1.3) Eosinophils # (Auto) 0.1 10 ^3/uL (0-0.8) Basophils # (Auto) 0.1 10 ^3/uL (0-0.2) Nucleated Red Blood Cells 0.0 % Sodium Level 142 mmol/L (136-145) Potassium Level 3.8 mmol/L (3.5-5.1) Chloride Level 110 mmol/L (98-107) Carbon Dioxide Level 21 mmol/L (20-31) Anion Gap 11 (5-15) Blood Urea Nitrogen 8 mg/dL (9-23) Creatinine 0.62 mg/dL (0.550-1.02) Glomerular Filtration Rate Calc 124 mL/min (>90) BUN/Creatinine Ratio 12.9 (10.0-20.0) Serum Glucose 103 mg/dL (74-106) Calcium Level 9.3 mg/dL (8.7-10.4) Total Bilirubin 1.7 mg/dL (0.2-1.0) Aspartate Amino Transferase (AST) < 8 U/L (13-40) Alanine Aminotransferase (ALT) < 9 U/L (7-40) Alkaline Phosphatase 44 U/L (46-116) Total Protein 6.2 g/dL (5.7-8.2) Albumin 4.2 g/dL (3.2-4.8) Beta HCG, Quantitative 0.5 mIU/mL (1.5-4.2) Plasma/Serum Blood Alcohol < 3.0 mg/dL (<10) Urine Color Yellow (Yellow) Urine Clarity Clear (Clear) Urine pH 8.0 (5.0-9.0) Urine Specific [place] 1.034 (1.001-1.035) Urine Protein 1+ (Negative) Urine Ketones Trace (Negative) Urine Blood Negative /uL (Negative) Urine Nitrite Negative (Negative) Urine Bilirubin Negative (Negative) Urine Urobilinogen Normal mg/dL (Negative) Urine Leukocyte Esterase Negative /uL (Negative) Urine RBC 5 /hpf (0 - 4) Urine Microscopic WBC 3 /HPF (0-5) Urine Squamous Epithelial Cells Few /hpf (<5) Urine Bacteria Few /hpf (None Seen) Urine Mucus Few (None Seen) Urine Glucose Normal mg/dL (Normal) Urine Opiates Screen Neg (NEGATIVE) Urine Fentanyl Screen Neg (NEGATIVE) Urine Barbiturates Screen Pos (NEGATIVE) Urine Phencyclidine Screen Neg (NEGATIVE) Urine Amphetamines Screen Neg (NEGATIVE) Urine Benzodiazepines Screen Neg (NEGATIVE) Urine Cocaine Screen Neg (NEGATIVE) Urine Cannabinoids Screen Pos (NEGATIVE) Other Laboratory Tests 07/30/24 05:56 Brief Hx & Hospital Course: History of Present Illness Astrid Cobian is a 28-year-old female with past medical history of depression, seizure, and anxiety who presents to the ED for abdominal pain, nausea, and vomiting x1 day. Patient states that she has been vomiting food contents and bile. Patient reports her pain 7/10 intermittent and aching points to her right upper flank. Patient denies any chest pain, recent trauma or recent injury, shortness of breath, fever, chills, wheezing, diarrhea, lightheadedness, and dizziness. Patient also denies that she had any recent ingestion of spoiled food. She states that hot showers makes the pain better and sitting makes it worse. Patient states that she vapes, drinks occasionally, and uses marijuana. Patient also reports that she currently stays at a detox center and she is from [place]. Course of hospitalization: Patient was nausea resolved. CT of abdomen and pelvis negative for any acute pathology. Leukocytosis probably secondary to sirs response from nausea and vomiting. Long discussion made with the patient regarding her symptoms. Patient does state that she has been admitted in the hospital on multiple occasions for cannabinoid induced hyperemesis. Patient was given adequate IV hydration. Patient is requesting to be discharged home. After the patient tolerates oral intake she was going to go back to her rehabilitation/recovery facility. Patient states that she will continue to smoke marijuana, because it is less lethal than the IV drug she has been using in the past. She was instructed to follow up with her PCP at next earliest appointment. Physical examination General: Alert and Oriented x3. No acute distress. Well-nourished. Eyes: EOMI. Anicteric. HENT: Moist mucous membranes. Lungs: Clear to auscultation bilaterally. No accessory muscle use. Cardiovascular: Regular rate and rhythm. No murmur. No JVD. Abdomen: Soft, non-tender and non-distended. No palpable masses. Extremities: No edema. Non-tender. Skin: No rashes or lesions. Warm. Neurologic: No focal neurological deficits. CN II-XII grossly intact, but not individually tested. Psychiatric: Cooperative. Appropriate mood and affect. Total time spent with patient discussing and formulating plan of care: 35 minutes. This medical document was created using an electronic medical record system with [employer] dictation system. Although this document has been carefully reviewed, there may still be some phonetic and typographical errors. These areas are purely typographical due to imperfections of the software programs, and do not reflect any compromise in the patient's medical care. Condition at Discharge: Fair Final Diagnosis/Problems List Cannabinoid induced hyperemesis Secondary Diagnosis: Cannabinoid abuse Sirs secondary to intractable nausea and vomiting Discharge Disposition: Home Discharge Instruct/Medications Diet: Regular Activity: No Restrictions, As Tolerated Follow Up/Referral: Follow up with PCP at next available appointment Medications: Continue all previous home medications 36 Discharge Statement: "Patient was advised to return to the ER or call 911 if any headaches, dizziness, shortness of breath, chest pain, abdominal pain, bleeding, fevers, or worsening of medical condition. Patient was counseled about treatment plan, medications, possible side effects, patientverbalized understanding. All questions were answered to the best of my ability. This discharge took greater then 30 minutes in planning, reviewing documentation, counseling the patient, and discussing with other team members." ASSESSMENT ASSESSMENT Assessment Cannabinoid induced hyperemesis Date of Service: Jul 30, 2024 Billing Provider: CODY GUTIERREZ NP Common Visit Codes: [id number] DISCH DAY >30min CODY GUTIERREZ NP Jul 30, 2024 11:24
[2024-07-30 13:00] VITALS: BP 110/70; PULSE 58; RESP 16; TEMP 97.7; O2SAT 98
== END 2024-07-30 13:15 | disposition home or self-care (01) | DRG 249 ==
LOC: EDBD 08:01 → ER 08:01 → OVERFLOW 14:00 → TELE-EAST 15:58
PROVIDERS: ADMIT Nurse Practitioner Acute Care; ATTEND Nurse Practitioner Acute Care
DX: R11.2 Nausea with vomiting, unspecified (principal); R65.10 Systemic inflammatory response syndrome (SIRS) of non-infectious origin without acute organ dysfunction; R56.9 Unspecified convulsions; D72.829 Elevated white blood cell count, unspecified; R80.9 Proteinuria, unspecified; F41.9 Anxiety disorder, unspecified; F32.A Depression, unspecified; F17.290 Nicotine dependence, other tobacco product, uncomplicated; Z82.49 Family history of ischemic heart disease and other diseases of the circulatory system; Z79.899 Other long term (current) drug therapy; F12.10 Cannabis abuse, uncomplicated
CPT/HCPCS: 36415; 71045; 74176; 80048; 80053; 80307; 80320; 81001; 84702; 85025; 87081; 96365; 96375; G0378; J2405; J2543